=== PATIENT | female | born 1960 | race Caucasian/White ===

== ENCOUNTER → 2023-09-30 07:21 | Outpatient (REF) | payer OTHER, SELFPAY | LOC: HWRAD 07:21 | PROVIDERS: ATTENDING PHYSICIAN Nurse Practitioner Adult Health | DX: R10.84 Generalized abdominal pain (principal); K59.01 Slow transit constipation; Z87.442 Personal history of urinary calculi | CPT/HCPCS: 76700 ==

== ENCOUNTER → 2024-04-16 06:29 | Day surgery (SDC) | payer OTHER, SELFPAY | LOC: GI 06:29 | PROVIDERS: ATTENDING PHYSICIAN Internal Medicine Gastroenterology | DX: R12 Heartburn (principal); K22.89 Other specified disease of esophagus | CPT/HCPCS: 43239; 88305 ==

== ENCOUNTER 2024-06-21 20:36 | Emergency (ER) | payer OTHER, SELFPAY ==
[2024-06-21 20:39] VITALS: BP 139/106
--- NOTE | 2024-06-21 22:29 | ED.MUSCINJ ---
HPI-Injury
<Lázaro Cortes DO - Last Filed: 06/21/24 22:41>
General
Chief Complaint: Musculo-Skeletal Complaint
Source: patient
Exam Limitations: none
Time Seen by Provider: 06/21/24 21:53
Nursing documentation reviewed up to this point in time: agreed with
History of Present Illness-Injury
Initial Injury comments:
This a pleasant 64-year-old female presents with right foot and ankle pain. She states that she was out [id number] with her grandkids when she stepped off a curb, rolling her ankle. She has been unable to bear weight. She does report very
mild knee tenderness to palpation. She has seen Dr. Haley in the past for orthopedics
Past History
<DO Delfina Banuelos Last Filed: 06/21/24 22:41>
Past History
ED Past Medical History: Asthma, Hypothyroidism and Other (Colitis, Prolapsed bladder)
ED Past Surgical History: None
Social History
Tobacco: Non-smoker
Alcohol: None
Drug: None
Personal:
Living: with family
Employment: Employed
Family History
Family History: Other (Noncontributory)
Phy Exam
<CELE Wisdom - Last Filed: 06/22/24 06:06>
General Physical Exam
General Presentation: well appearing and no apparent distress
General age: appears stated age
General Skin: warm and dry
General Habitus: normal
General Mental: alert
General Hydration: appears well hydrated
Injury Course
<DO Delfina Banuelos Last Filed: 06/21/24 22:41>
Orders/Labs/Results
Orders:
Orders
06/21/24 20:45
Ankle, Right 3 view CR [CR Ankle - Right Min 3 Views *] Urgent
Comment:
Reason For Exam: stepped off curb and rolled right ankle
06/21/24 22:05
Knee, Right 4 or More Views [CR Knee- Right 4 Or More View*] Urgent
Comment:
Reason For Exam: knee pain affter twisting ankle
06/21/24 22:36
Splints/Slings/Crut- Treatment ONCE
<CELE Wisdom - Last Filed: 06/22/24 06:06>
Orders/Labs/Results
Orders:
Orders
06/21/24 20:45
Ankle, Right 3 view CR [CR Ankle - Right Min 3 Views *] Urgent
Comment:
Reason For Exam: stepped off curb and rolled right ankle
06/21/24 22:05
Knee, Right 4 or More Views [CR Knee- Right 4 Or More View*] Urgent
Comment:
Reason For Exam: knee pain affter twisting ankle
06/21/24 22:36
Splints/Slings/Crut- Treatment ONCE
Procedures
<CELE Wisdom - Last Filed: 06/22/24 06:06>
Splinting/Sling Placement
Right Lower Ankle:
Pre-splint extermity exam: neurovascular intact
Type of splint: magdalene wrap and posterior short leg
Splint material: fiberglass
Splint checked by provider?: Yes
Normal distal neurovascular exam?: Yes
<CELE Wisdom - Last Filed: 06/22/24 06:06>
MDM/Problems Addressed
Differential Diagnosis Includes:
Patient was assessed by Dr. Cortes. Along with other PA and patient healthcare science specialist applied posterior lower leg splint.
<CELE Wisdom - Last Filed: 11/01/24 06:06>
*Critical Care Note
Total Time (30-74mins, 75-104mins- exclusive of procedures): Not Applicable
ED Attending Note
<Lázaro Cortes DO - Last Filed: 06/21/24 22:41>
-
Portions of this chart may have been created with voice recognition software.� Occasional wrong word or��sound alike� substitutions may have occurred due to the inherent limitations of voice recognition software.
Discharge Plan
Departure
Patient Disposition: Home (Routine Discharge)
Date of Disposition: 06/21/24
Time of Disposition: 22:41
Patient with high blood pressure during this ER visit?: Yes
Condition: Good
Discharge Problem:
Ankle sprain
Prescriptions:
No Action
levothyroxine 88 MCG tablet
88 mcg PO DAILY
cholecalciferol (vitamin D3) [Vitamin D3] 25 MCG capsule
1,000 unit PO DAILY
rosuvastatin 5 MG tablet
5 mg PO DAILY
Orencia 125 MG/ML syringe
125 mg SQ ANGELA
Loratadine [Claritin] 10 MG Tablet
10 mg PO DAILY
omega 6-bsa-urv-fish oil [Fish Oil] 1 EACH capsule
1 ea PO DAILY
cyanocobalamin (vitamin B-12) 5,000 MCG tablet,disintegrating
5,000 mcg PO DAILY
Calcium
1,200 mcg PO DAILY
Coq10
200 mg PO BID
Potassium Citrate
10 meq PO BID
omeprazole 40 mg Capsule,Delayed Release(Dr/Ec)
40 mg PO DAILY
montelukast [Singulair] 10 mg Tablet
10 mg PO DAILY
Referrals:
UNKNOWN - PT DOES,NOT KNOW [Family Provider] -
Interventions
Interventions:
*Risk Screen - Suicide Last Done: 06/21/24 22:24
*General Assessment Last Done: 06/21/24 22:24
*Neglect/Abuse Screening Last Done: 06/21/24 22:24
*ED COVID-19 Vaccine History Last Done: 06/21/24 22:24
*Nursing Disposition Last Done: 06/21/24 23:16
ED-Musculoskeletal Assessment Last Done: 06/21/24 22:24
Discharge Date and Time
Discharge Date/Time: 06/21/24 23:30
Print Language: ALBANIAN
== END 2024-06-21 23:30 | disposition home or self-care (01) ==
LOC: EMR 20:36
PROVIDERS: EMERGENCY PHYSICIAN Student in an Organized Health Care Education/Training Program
DX: S93.401A Sprain of unspecified ligament of right ankle, initial encounter (principal); X50.1XXA Overexertion from prolonged static or awkward postures, initial encounter; R03.0 Elevated blood-pressure reading, without diagnosis of hypertension
CPT/HCPCS: 99283; 29515; 73564; 73610

== ENCOUNTER → 2024-07-17 16:28 | Outpatient (REF) | payer OTHER, SELFPAY | LOC: WDC 16:28 | PROVIDERS: ATTENDING PHYSICIAN Internal Medicine; FAMILY PHYSICIAN Obstetrics & Gynecology Gynecology | DX: Z12.31 Encounter for screening mammogram for malignant neoplasm of breast (principal) | CPT/HCPCS: 77063; 77067 ==

== ENCOUNTER → 2024-08-09 08:29 | Outpatient (REF) | payer OTHER, SELFPAY | LOC: RCS 08:29 | PROVIDERS: ATTENDING PHYSICIAN Internal Medicine | DX: E78.5 Hyperlipidemia, unspecified (principal); R06.09 Other forms of dyspnea | CPT/HCPCS: 93017; 36415; 93350 ==

== ENCOUNTER → 2024-08-29 08:39 | Outpatient (REF) | payer OTHER, SELFPAY | LOC: RAD 08:39 | PROVIDERS: ATTENDING PHYSICIAN Internal Medicine; FAMILY PHYSICIAN Internal Medicine | DX: M85.80 Other specified disorders of bone density and structure, unspecified site (principal) | CPT/HCPCS: 77080 ==

== ENCOUNTER 2024-11-18 21:36 | Emergency (ER) | payer OTHER, SELFPAY ==
[2024-11-18 21:37] VITALS: BP 166/93
--- NOTE | 2024-11-18 22:41 | ED.GENMED ---
History of Present Illness
General
Chief Complaint: Visual Problem
Source: patient
Exam Limitations: none
Time Seen by Provider: 11/18/24 22:32
History of Present Illness
History of Present Illness:
64yoF with a history of rheumatoid arthritis and L cataract surgery 5 weeks ago presenting for evaluation of left eye visual disturbance. Patient suddenly saw a large S-shaped burgundy shape in the center of her vision 1 hour ago. She states it
looked like an object was right in front of her. The object moves with eye movement. Symptoms are persistent but now it looks green and like 'an oil spill.' She has some pressure in the eye but denies any pain. No eye trauma. No visual field
cut, photophobia, foreign body sensation, blurred/double vision, headache. She wears glasses but does not wear contact lenses.
Past History
Past History
ED Past Medical History: Asthma, Hypothyroidism and Other (Colitis, Prolapsed bladder)
ED Past Surgical History: None
Social History
Tobacco: Non-smoker
Alcohol: None
Drug: None
Personal:
Living: with family
Employment: Employed
Family History
Family History: Other (Noncontributory)
Phy Exam
General Physical Exam
General Presentation: well appearing and no apparent distress
General age: appears stated age
General Skin: warm and dry
General Habitus: normal
General Mental: alert
ENT Exam
ENT Exam: normocephalic
Eye Exam
Eye Exam: PERRL, EOMI, conjunctiva normal, visual damon normal and other (L eye appears normal with clear conjunctiva. PERRL. EOMs intact. Visual damon normal. Pressure in L eye 19-21mmHg, pressure in R eye 15-22mmHg. No retinal detachment seen on
bedside ocular ultrasound. )
Right 20/: 30
Left 20/: 20
Neurological Exam
Neurological Exam: alert
[place] Coma Scale
Eye Opening: Spontaneous
Verbal Response: Oriented
Motor Response: Obeys Commands
GCS Total Score: 15
Skin Exam
Skin Exam: normal color and warm/dry
Psychiatric Exam
Psychiatric Exam: normal mood/affect
Course
Orders/Labs/Results
Orders:
Orders
11/18/24 22:33
Visual Acuity- Treatment ONCE
Vital Signs
Initial and Last Documented VS:
Initial Vital Signs
Temp Pulse Resp BP Pulse Ox
97.6 F 93 18 166/93 98
11/18/24 21:37 11/18/24 21:37 11/18/24 21:37 11/18/24 21:37 11/18/24 21:37
Last Documented Vital Signs
Temp Pulse Resp BP Pulse Ox
97.6 F 93 18 166/93 98
11/18/24 21:37 11/18/24 21:37 11/18/24 21:37 11/18/24 21:37 11/18/24 21:37
MDM/Problems Addressed
Differential Diagnosis Includes:
64yoF here with L eye floaters that began 1 hour [employer]. Hx of cataract surgery 5 weeks ago. Denies visual field cut, eye pain, photophobia, trauma. Left eye appears normal on exam. Pupillary exam is normal. Visual acuity 20/30 in affected eye without
glasses. Intraocular pressure 19-21mmHg. Bedside ocular ultrasound performed. No evidence of retinal detachment noted.
No clinical evidence of CVA. Patient is stable for discharge. She was instructed to follow-up with her it applications analyst tomorrow for a formal eye exam. ED return precautions discussed.
*Critical Care Note
Total Time (30-74mins, 75-104mins- exclusive of procedures): Not Applicable
ED Attending Note
-
Portions of this chart may have been created with voice recognition software.� Occasional wrong word or��sound alike� substitutions may have occurred due to the inherent limitations of voice recognition software.
Discharge Plan
Departure
Patient Disposition: Home (Routine Discharge)
Date of Disposition: 11/18/24
Time of Disposition: 23:02
Patient with high blood pressure during this ER visit?: Yes
Discharge Problem:
Visual disturbance of one eye
Instructions: Floaters in the Eye
Prescriptions:
No Action
levothyroxine 88 MCG tablet
88 mcg PO DAILY
cholecalciferol (vitamin D3) [Vitamin D3] 25 MCG capsule
1,000 unit PO DAILY
rosuvastatin 5 MG tablet
5 mg PO DAILY
Orencia 125 MG/ML syringe
125 mg SQ ANGELA
Loratadine [Claritin] 10 MG Tablet
10 mg PO DAILY
omega 9-ddr-akx-fish oil [Fish Oil] 1 EACH capsule
1 ea PO DAILY
cyanocobalamin (vitamin B-12) 5,000 MCG tablet,disintegrating
5,000 mcg PO DAILY
Calcium
1,200 mcg PO DAILY
Coq10
200 mg PO BID
Potassium Citrate
10 meq PO BID
omeprazole 40 mg Capsule,Delayed Release(Dr/Ec)
40 mg PO DAILY
montelukast [Singulair] 10 mg Tablet
10 mg PO DAILY
Referrals:
Jenifer Nix NP [Family Provider] -
Activity Restrictions/Additional Instructions:
Please see your it applications analyst tomorrow for a dilated eye exam. Return to the ER with any new or worsening symptoms.
Interventions
Interventions:
*Risk Screen - Suicide Last Done: 11/18/24 21:41
*General Assessment Last Done: 11/18/24 21:41
*Neglect/Abuse Screening Last Done: 11/18/24 21:41
*ED- Fall Risk Assessment Last Done: 11/18/24 23:07
*ED COVID-19 Vaccine History Last Done: 11/18/24 21:41
*Nursing Disposition Last Done: 11/18/24 23:16
ED-EENT Assessment Last Done: 11/18/24 23:15
ED- Neurological Assessment Last Done: 11/18/24 22:50
ED Swallowing Screen Last Done: 11/18/24 22:50
Discharge Date and Time
Discharge Date/Time: 11/18/24 23:16
Print Language: [email or web address]
== END 2024-11-18 23:16 | disposition home or self-care (01) ==
LOC: EMR 21:36
PROVIDERS: EMERGENCY PHYSICIAN Emergency Medicine; FAMILY PHYSICIAN Internal Medicine
DX: H53.9 Unspecified visual disturbance (principal); J45.909 Unspecified asthma, uncomplicated; E03.9 Hypothyroidism, unspecified; M06.9 Rheumatoid arthritis, unspecified
CPT/HCPCS: 99282

== ENCOUNTER → 2024-12-12 12:32 | Outpatient (REF) | payer OTHER, SELFPAY | LOC: EMG 12:32 | PROVIDERS: ATTENDING PHYSICIAN Registered Nurse | DX: R20.2 Paresthesia of skin (principal) | CPT/HCPCS: 95886; 95910 ==

== ENCOUNTER → 2025-07-22 12:17 | Outpatient (REF) | payer OTHER, SELFPAY | LOC: WDC 12:17 | PROVIDERS: ATTENDING PHYSICIAN Obstetrics & Gynecology Gynecology; FAMILY PHYSICIAN Internal Medicine | DX: Z12.31 Encounter for screening mammogram for malignant neoplasm of breast (principal) | CPT/HCPCS: 77063; 77067 ==